=== PATIENT | male | born 1985 | race African-American/Black ===

== ENCOUNTER 2018-12-24 04:26 | Emergency (ER) | payer OTHER ==
[~2018-12-24] VITALS: Ht 180.3 cm; Wt 86.4 kg
[~2018-12-24 04:26] MED LIST: CIPR-278 PO
[2018-12-24 05:00] LABS: AMPHET/METH SCREEN,URINE NEGATIVE (NEGATIVE); BARBITURATE SCREEN, URINE NEGATIVE (NEGATIVE); BENZODIAZEPINES SCREEN,URINE NEGATIVE (NEGATIVE); CANNABINOID SCREEN,URINE POSITIVE (NEGATIVE); COCAINE SCREEN,URINE NEGATIVE (NEGATIVE); METHADONE SCREEN, URINE NEGATIVE (NEGATIVE); OPIATE SCREEN,URINE NEGATIVE (NEGATIVE); PHENCYCLIDINE SCREEN,URINE NEGATIVE (NEGATIVE)
[2018-12-24 05:42] VITALS: BP 130/82
== END 2018-12-24 05:47 | disposition home or self-care (01) ==
LOC: EMS 04:26
DX: G47.00 Insomnia, unspecified (principal); F17.210 Nicotine dependence, cigarettes, uncomplicated; F12.90 Cannabis use, unspecified, uncomplicated

== ENCOUNTER 2020-03-23 03:37 | Emergency (ER) | payer OTHER ==
[~2020-03-23] VITALS: Ht 180.3 cm; Wt 95.5 kg
[2020-03-23 03:42] VITALS: BP 120/60
== END 2020-03-23 04:33 | disposition left against medical advice (07) ==
LOC: EMS 03:38
DX: R11.10 Vomiting, unspecified (principal); Z53.21 Procedure and treatment not carried out due to patient leaving prior to being seen by health care provider

== ENCOUNTER 2022-04-13 16:55 | Emergency (ER) | payer OTHER ==
[~2022-04-13] VITALS: Ht 180.3 cm; Wt 93.2 kg
[2022-04-13 17:45] VITALS: BP 144/71
[2022-04-13 17:47] LABS: BASOPHILS % (AUTO) 0.5 % (0.0-2.0); EOSINOPHILS % (AUTO) 6.4 % (1.0-6.0); HEMATOCRIT 39.8 % (41-53); LYMPHOCYTES # (AUTO) 1.8 K/uL (1.0-4.8); LYMPHOCYTES % (AUTO) 18.5 % (22.0-44.0); MEAN CORPUSCULAR HEMOGLOBIN 28.6 pg (26.0-34.0); MEAN CORPUSCULAR HGB CONC 32.8 G/dL (31.0-37.0); MEAN CORPUSCULAR VOLUME 87 fL (80-100); MONOCYTES # (AUTO) 0.7 K/uL (0.1-1.0); MONOCYTES % (AUTO) 7.5 % (2.0-9.0); NEUTROPHILS # (AUTO) 6.5 K/uL (1.8-7.7); NEUTROPHILS % (AUTO) 67.1 % (40.0-70.0); PLATELET COUNT (AUTO) 239 K/uL (150-450); RED BLOOD CELL COUNT(AUTO) 4.56 MIL/uL (4.50-5.90); RED CELL DISTRIBUTION WIDTH 12.9 % (11.5-14.5)
[2022-04-13 17:51] LABS: AMPHET/METH SCREEN,URINE NEGATIVE (NEGATIVE); BARBITURATE SCREEN, URINE NEGATIVE (NEGATIVE); BENZODIAZEPINES SCREEN,URINE NEGATIVE (NEGATIVE); CANNABINOID SCREEN,URINE NEGATIVE (NEGATIVE); COCAINE SCREEN,URINE NEGATIVE (NEGATIVE); METHADONE SCREEN, URINE NEGATIVE (NEGATIVE); OPIATE SCREEN,URINE NEGATIVE (NEGATIVE); PHENCYCLIDINE SCREEN,URINE NEGATIVE (NEGATIVE)
[2022-04-13 17:55] LABS: ANION GAP 8 mmol/L (8-16); CALCIUM, TOTAL 9.4 mg/dL (8.8-10.5); CARBON DIOXIDE 28 mmol/L (22-29); CHLORIDE 100 mmol/L (98-107); CREATININE 1.15 mg/dL (0.60-1.30); GLOMERULAR FILTR. RATE CALC > 60 mL/min (>60); GLUCOSE,RANDOM 86 mg/dL (70-110); POTASSIUM 4.1 mmol/L (3.5-5.1); SODIUM SERUM 136 mmol/L (136-145); UREA NITROGEN, BLOOD 12 mg/dL (7-18)
[2022-04-13 18:02] LABS: ALANINE AMINOTRANSFERASE 29 U/L (12-78); ALBUMIN 4.3 g/dL (3.4-5.0); ALKALINE PHOSPHATASE 56 U/L (46-116); ASPARTATE AMINOTRANSFERASE 18 U/L (15-37); BILIRUBIN,TOTAL 0.5 mg/dL (0.1-1.0); TOTAL PROTEIN, SERUM 7.3 g/dL (6.4-8.2)
== END 2022-04-13 18:41 | disposition home or self-care (01) ==
LOC: EMS 17:00
DX: Z13.30 Encounter for screening examination for mental health and behavioral disorders, unspecified (principal); F20.9 Schizophrenia, unspecified; F10.20 Alcohol dependence, uncomplicated; F12.90 Cannabis use, unspecified, uncomplicated; F17.210 Nicotine dependence, cigarettes, uncomplicated
CPT/HCPCS: 99283; 80053; 85025; 36415; 80307 ×2; G0480

== ENCOUNTER 2024-08-18 13:08 | Emergency (ER) | payer OTHER ==
[~2024-08-18] VITALS: Ht 177.8 cm; Wt 86.8 kg
[~2024-08-18 13:08] MED LIST changes: +ARIP20TA63 PO; -CIPR-278 PO; +QUET100T34 PO; +RISP1TAB48 PO
[2024-08-18 13:11] VITALS: BP 109/76; PULSE 55; RESP 18; TEMP 98.4; O2SAT 98
[2024-08-18] MEDS: PERTUSS(ACELL),DIPH,TET/PF 0.5 ML SYRINGE [ADULT] IM. ONE (13:56)
== END 2024-08-18 14:43 | disposition home or self-care (01) ==
LOC: EMS 13:11
DX: S61.011A Laceration without foreign body of right thumb without damage to nail, initial encounter (principal); F12.90 Cannabis use, unspecified, uncomplicated; F20.9 Schizophrenia, unspecified; F17.210 Nicotine dependence, cigarettes, uncomplicated; Z79.899 Other long term (current) drug therapy; W26.0XXA Contact with knife, initial encounter; Y93.89 Activity, other specified; Y92.89 Other specified places as the place of occurrence of the external cause; Y99.0 Civilian activity done for income or pay
CPT/HCPCS: 90471; 90715; 99283